=== PATIENT | female | born 1995 | race Caucasian/White ===

== ENCOUNTER 2017-10-16 04:36 | Inpatient (IN) | payer BC ==
[2017-10-16] MEDS ORDERED: NS 1,000 ML IV ONE ×4 (04:46→10:02)
[2017-10-16] MEDS ORDERED: INSULIN REGULAR HUMAN 100 UNIT/ML IVP ONE (04:46)
[2017-10-16] MEDS ORDERED: ONDANSETRON 4 MG/2 ML VIAL ONE (04:50)
--- NOTE | 2017-10-16 04:56 | EDPHY ---
H & P Stated Complaint: emesis and BS of 430 Time Seen by Provider: 10/16/17 04:46 HPI/ROS: HPI The patient presents with nausea and vomiting which began at 11:00 p.m. last night. She thinks she has had about 10 episodes of vomiting of yellowish fluid since then. She is currently being treated for a skin infection at the site of her insulin pump with Keflex for the last 4 days. She has not had any fevers or chills. Then, last night in between 2 and 10:00 p.m. she thinks she had about 8 drinks of wine and sangria. Before that she ate a large Thanksgiving meal. She reports diffuse abdominal pain. She has a history of DKA, last about 1 year ago requiring hospitalization here. She reports her insulin pump is working well. REVIEW OF SYSTEMS Constitutional: No fever, no chills. Eyes: No discharge. ENT: No sore throat. Cardiovascular: No chest pain, no palpitations. Respiratory: No cough, no shortness of breath. Gastrointestinal: No abdominal pain, no vomiting. Genitourinary: No hematuria. Musculoskeletal: No back pain. Skin: No rashes. Neurological: No headache. PMHx: Type 1 diabetes with insulin pump Soc Hx: Alcohol use PHYSICAL General Appearance: Alert, no distress Eyes: Pupils equal and round no pallor or injection ENT, Mouth: Mucous membranes dry Respiratory: Tachypnea, no retractions, lungs are clear to auscultation Cardiovascular: Tachycardic rate with regular rhythm Gastrointestinal: Abdomen is soft and non-tender, no masses, bowel sounds normal Neurological: A&O, moves all extremities Skin: Warm and dry, no rashes Musculoskeletal: Neck is supple non tender Extremities: symmetrical, full range of motion, left anterior thigh with 3 x 3 cm area of induration and dark edema which is nontender to palpation Psychiatric: Patient is oriented X 3, there is no agitation Source: Patient Exam Limitations: No limitations - Personal History Current Tetanus/Diphtheria Vaccine: Yes Current Tetanus Diphtheria and Acellular Pertussis (TDAP): Yes Tetanus Vaccine Date: < 10 YEARS - Medical/Surgical History Hx Asthma: No Hx Chronic Respiratory Disease: No Hx Diabetes: Yes Hx Cardiac Disease: No Hx Renal Disease: No Hx Cirrhosis: No Hx Alcoholism: No Hx HIV/AIDS: No Hx Splenectomy or Spleen Trauma: No Other PMH: DM TYPE 1 - Social History Smoking Status: Never smoked Constitutional: Initial Vital Signs Temperature (C) 36.4 C 10/16/17 04:37 Heart Rate 120 H 10/16/17 04:37 Respiratory Rate 18 10/16/17 04:37 Blood Pressure 116/90 H 10/16/17 04:37 O2 Sat (%) 100 10/16/17 04:37 O2 Delivery Mode Room Air Allergies/Adverse Reactions: No Known Allergies Allergy (Verified 10/16/17 04:43) Home Medications: Medication Instructions Recorded FLUoxetine [Prozac 20 MG (*)] 20 mg PO DAILY 09/24/16 Insulin Pump, Patient Own 1 ea MISC AD 09/24/16 Oxybutynin Chloride Xl [Ditropan 15 mg PO DAILY 09/24/16 Xl 5mg (*)] Insulin Aspart Prot/Insuln Asp 100 unit SQ DAILY #0 insuln.pen 09/27/16 [Novolog Mix 70-30 Flexpen Syrn] CEPHALEXIN 10/16/17 Medical Decision Making - Diagnostics EKG Interpretation: EKG: Complete interpretation has been separately recorded in the [email or web address] archive. Summary impression: Normal sinus rhythm Differential Diagnosis: This is a 22-year-old female with type 1 diabetes with insulin pump in place presents with nausea and vomiting for the last 6 hours. She has been drinking alcohol just prior to this and eating a large meal. Her blood glucoses when she checked them were in the 400s over the last few hours. Differential diagnosis includes DKA, hyperglycemia, dehydration, pancreatitis, alcoholic gastritis. In the emergency department, labs were checked and did demonstrate anion gap acidosis, likely related to DKA with elevated blood glucose. She had ketones in her urine as well. She was started on normal saline bolus, total of 3 L. She was started on an insulin bolus followed by a drip. She will be admitted to the ICU and I have discussed this with the hospitalist Dr. Kelley. I suspect DKA was caused by dietary indiscretion and alcohol use. Critical Care Time: CRITICAL CARE Critical care time spent by me, Dr. Castañeda, exclusively with this patient was 30 minutes, exclusive of PA time and exclusive of procedures. The organ system at risk was cardiac, endocrine and I gave IV fluids, started an insulin drip, transfer the patient to the ICU to prevent worsening of the patients condition. - Data Points Laboratory Results: Laboratory Results 10/16/17 05:05 10/16/17 05:05 10/16/17 10/16/17 10/16/17 05:05 05:05 05:00 WBC 15.62 10^3/uL H 10^3/uL (3.80-9.50) RBC 5.01 10^6/uL 10^6/uL (4.18-5.33) Hgb 15.5 g/dL g/dL (12.6-16.3) POC Hgb Hct 46.0 % % (38.0-47.0) POC Hct MCV 91.8 fL fL (81.5-99.8) MCH 30.9 pg pg (27.9-34.1) MCHC 33.7 g/dL g/dL (32.4-36.7) RDW 12.5 % % (11.5-15.2) Plt Count 374 10^3/uL 10^3/uL (150-400) MPV 10.3 fL fL (8.7-11.7) Neut % (Auto) 82.8 % H % (39.3-74.2) Lymph % (Auto) 14.1 % L % (15.0-45.0) [place] % (Auto) 2.2 % L % (4.5-13.0) Eos % (Auto) 0.1 % L % (0.6-7.6) Baso % (Auto) 0.2 % L % (0.3-1.7) Nucleat RBC Rel Count 0.0 % % (0.0-0.2) Absolute Neuts (auto) 12.93 10^3/uL H 10^3/uL (1.70-6.50) Absolute Lymphs (auto) 2.21 10^3/uL 10^3/uL (1.00-3.00) Absolute Monos (auto) 0.35 10^3/uL 10^3/uL (0.30-0.80) Absolute Eos (auto) 0.01 10^3/uL L 10^3/uL (0.03-0.40) Absolute Basos (auto) 0.03 10^3/uL 10^3/uL (0.02-0.10) Absolute Nucleated RBC 0.00 10^3/uL 10^3/uL (0-0.01) Immature Gran % 0.6 % % (0.0-1.1) Immature Gran # 0.09 10^3/uL 10^3/uL (0.00-0.10) POC Sodium Sodium 140 mEq/L mEq/L (134-144) POC Potassium Potassium 4.9 mEq/L mEq/L (3.5-5.2) POC Chloride Chloride 100 mEq/L mEq/L (97-110) Carbon Dioxide 9 mEq/l L* mEq/l (22-31) Anion Gap 31 mEq/L H mEq/L (8-16) POC BUN BUN 18 mg/dL mg/dL (7-23) Creatinine 0.9 mg/dL mg/dL (0.6-1.0) POC Creatinine Estimated GFR > 60 Glucose 503 mg/dL H* mg/dL (70-100) POC Glucose Calcium 10.7 mg/dL H mg/dL (8.5-10.4) Phosphorus 6.3 mg/dL H mg/dL (2.5-4.5) Magnesium 2.0 mg/dL mg/dL (1.6-2.3) Lipase 74 IU/L IU/L (23-300) Beta-Hydroxybutyrate Pending Urine Color PALE YELLOW Urine Appearance CLEAR Urine pH 5.0 (5.0-7.5) Ur Specific [place] 1.026 (1.002-1.030) Urine Protein NEGATIVE (NEGATIVE) Urine Ketones 2+ H (NEGATIVE) Urine Blood NEGATIVE (NEGATIVE) Urine Nitrate NEGATIVE (NEGATIVE) Urine Bilirubin NEGATIVE (NEGATIVE) Urine Urobilinogen NEGATIVE EU EU (0.2-1.0) Ur Leukocyte Esterase NEGATIVE (NEGATIVE) Urine RBC NONE SEEN /hpf /hpf (0-3) Urine WBC NONE SEEN /hpf /hpf (0-3) Ur Epithelial Cells TRACE /lpf /lpf (NONE-1+) Urine Mucus TRACE /lpf /lpf (NONE-1+) Urine Glucose 3+ H (NEGATIVE) Ethyl Alcohol < 10 mg/dL mg/dL (0-10) 10/16/17 10/16/17 04:58 04:51 WBC RBC Hgb POC Hgb 16.7 gm/dL H gm/dL (12.6-16.3) Hct POC Hct 49 % H % (38-47) MCV MCH MCHC RDW Plt Count MPV Neut % (Auto) Lymph % (Auto) [place] % (Auto) Eos % (Auto) Baso % (Auto) Nucleat RBC Rel Count Absolute Neuts (auto) Absolute Lymphs (auto) Absolute Monos (auto) Absolute Eos (auto) Absolute Basos (auto) Absolute Nucleated RBC Immature Gran % Immature Gran # POC Sodium 136 mEq/L mEq/L (134-144) Sodium POC Potassium 4.7 mEq/L mEq/L (3.3-5.0) Potassium POC Chloride 104 mEq/L mEq/L (97-110) Chloride Carbon Dioxide Anion Gap POC BUN 21 mg/dL mg/dL (7-23) BUN Creatinine POC Creatinine 0.8 mg/dL mg/dL (0.6-1.0) Estimated GFR Glucose POC Glucose 484 mg/dL H mg/dL > 350 mg/dL H mg/dL (70-100) (70-100) Calcium Phosphorus Magnesium Lipase Beta-Hydroxybutyrate Urine Color Urine Appearance Urine pH Ur Specific [place] Urine Protein Urine Ketones Urine Blood Urine Nitrate Urine Bilirubin Urine Urobilinogen Ur Leukocyte Esterase Urine RBC Urine WBC Ur Epithelial Cells Urine Mucus Urine Glucose Ethyl Alcohol Medications Given: Discontinued Medications Sodium Chloride (Ns) 1,000 mls @ 0 mls/hr IV ONCE ONE; Wide Open PRN Reason: Protocol Stop: 10/16/17 04:47 Last Admin: 10/16/17 05:03 Dose: 1,000 mls Insulin Human Regular (Humulin R) 10 unit IVP EDNOW ONE Stop: 10/16/17 04:47 Last Admin: 10/16/17 05:10 Dose: 10 units Ondansetron HCl (Zofran) 4 mg IVP EDNOW ONE Stop: 10/16/17 05:05 Last Admin: 10/16/17 05:04 Dose: 4 mg Point of Care Test Results: 10/16/17 10/16/17 04:51 04:58 POC Sodium 136 POC Potassium 4.7 POC Chloride 104 POC BUN 21 POC Creatinine 0.8 POC Glucose > 350 H 484 H Departure - Departure Disposition: [facility] Acute Clinical Impression: Nausea & vomiting DKA (diabetic ketoacidoses) Qualifiers: Diabetes mellitus type: type 1 Diabetes mellitus complication detail: without coma Qualified Code(s): E10.10 - Type 1 diabetes mellitus with ketoacidosis without coma Condition: Fair
[2017-10-16] MEDS ORDERED: ONDANSETRON 4 MG/2 ML VIAL IVP ONE (05:04)
[2017-10-16 05:12] LABS: COLOR PALE YELLOW; LEUKOCYTE ESTERASE,URINE NEGATIVE (NEGATIVE); NITRITE,URINE NEGATIVE (NEGATIVE)
[2017-10-16 05:16] LABS: MUCUS TRACE /lpf (NONE-1+); RBC,URINE NONE SEEN /hpf (0-3); WBC,URINE NONE SEEN /hpf (0-3)
[2017-10-16 05:19] LABS: % IMMATURE GRANULYOCYTES 0.6 % (0.0-1.1); ABSOLUTE IMMATURE GRANULOCYTES 0.09 10^3/uL (0.00-0.10); ADD DIFF? NO; ADD MORPH? NO; ADD SCAN? NO; ATYPICAL LYMPHOCYTE FLAG 0 (0-99); FRAGMENT RBC FLAG 0 (0-99); HEMOGLOBIN 15.5 g/dL (12.6-16.3); LEFT SHIFT FLG 0 (0-99); LIPEMIA HEMOLYSIS FLAG 80 (0-99); MEAN CELL HEMOGLOBIN 30.9 pg (27.9-34.1); MEAN CELL HEMOGLOBIN CONCENTR. 33.7 g/dL (32.4-36.7); MEAN CELL VOLUME 91.8 fL (81.5-99.8); MEAN PLATELET VOLUME 10.3 fL (8.7-11.7); PLATELET CLUMPS FLAG 0 (0-99); PLATELET COUNT 374 10^3/uL (150-400); RED BLOOD CELL COUNT 5.01 10^6/uL (4.18-5.33); RED CELL DISTRIBUTION WIDTH 12.5 % (11.5-15.2)
[2017-10-16 05:29] LABS: ANION GAP 31 mEq/L (8-16); CALCIUM 10.7 mg/dL (8.5-10.4); CHLORIDE 100 mEq/L (97-110); CREATININE 0.9 mg/dL (0.6-1.0); ETHANOL SERUM < 10 mg/dL (0-10); GLOMERULAR FILTRATION RATE > 60; POTASSIUM 4.9 mEq/L (3.5-5.2); SODIUM 140 mEq/L (134-144)
[2017-10-16 05:35] LABS: CARBON DIOXIDE 9 mEq/l (22-31)
[2017-10-16 05:36] LABS: GLUCOSE 503 mg/dL (70-100)
[2017-10-16] MEDS ORDERED: INSULIN REGULAR HUMAN 100 UNIT, COSIGN. REQUIRED 1 EA in NS 100 ML IV ONE (05:37)
[2017-10-16] MEDS ORDERED: ACETAMINOPHEN 325 MG TAB PO PRN (05:50)
[2017-10-16] MEDS ORDERED: ONDANSETRON DISINTEGRATING 4 MG TAB PO PRN (05:50)
[2017-10-16] MEDS ORDERED: ONDANSETRON 4 MG/2 ML VIAL IVP PRN (05:50)
--- NOTE | 2017-10-16 06:15 | CPEKG ---
Heart Rate: 121 RR Interval: 496 P-R Interval: 172 QRSD Interval: 84 QT Interval: 316 QTC Interval: 449 P [place]: 75 QRS [place]: 71 T Wave [place]: 0 EKG Severity - ABNORMAL ECG - EKG Impression: SINUS TACHYCARDIA EKG Impression: NONSPECIFIC T ABNORMALITIES, INFERIOR LEADS Electronically Signed By: Rio Gregorio 16-Oct-2017 07:10:33
[2017-10-16 06:22] LABS: B-HYDROXYBUTYRATE 7.25 mmol/L (0.02-0.27)
--- NOTE | 2017-10-16 06:36 | PDGENHP ---
History and Physical - Chief Complaint Nausea, vomiting - History of Present Illness 22 yo F w/ T1DM presents with nausea/vomiting. Patient is a type 1 diabetic with an insulin pump in place. Yesterday she had about 8 alcoholic beverages. Then, starting yesterday evening, she began to experience vomiting. She continued to vomit about every hour so she decided to come to the ED. Her insulin pump has been functioning without issue. Of note, She developed cellulitis on her left thigh from the site of her insulin pump last Tuesday. The site of her pump has since changed and she has been taking Keflex for 4 days. She has not noticed significant improvement to this despite the antibiotics. In the ED her laboratory work-up was consistent with DKA. Her symptoms improved significantly with 3L of IVF and insulin drip. History Information - Allergies/Home Medication List Allergies/Adverse Reactions: No Known Allergies Allergy (Verified 10/16/17 04:43) Home Medications: FLUoxetine [Prozac 20 MG (*)] 20 mg PO DAILY 09/24/16 [Last Taken 09/23/16] Insulin Pump, Patient Own 1 ea MISC AD 09/24/16 [Last Taken Unknown] Oxybutynin Chloride Xl [Ditropan Xl 5mg (*)] 15 mg PO DAILY 09/24/16 [Last Taken 09/23/16] CEPHALEXIN 10/16/17 [Last Taken Unknown] I have personally reviewed and updated: family history, medical history - Past Medical History diabetes type 1 - Family History Positive for: cancer - Social History Smoking Status: Never smoked Review of Systems Review of Systems: ROS: 10pt was reviewed & negative except for what was stated in HPI & below Physical Exam Physical Exam: Temp Pulse Resp BP Pulse Ox 36.4 C 124 H 20 99/78 L 96 10/16/17 04:37 10/16/17 05:30 10/16/17 05:30 10/16/17 05:30 10/16/17 05:30 Constitutional: no apparent distress, not in pain Eyes: PERRL, anicteric sclera Ears, Nose, Mouth, Throat: moist mucous membranes, no oral mucosal ulcers Cardiovascular: no murmur, rub, or gallop, tachycardia Respiratory: no respiratory distress, clear to auscultation Gastrointestinal: normoactive bowel sounds, soft, non-tender abdomen Skin: warm, erythema (Medial L thight with underlying induration; now spontaneously draining) Musculoskeletal: full muscle strength, no muscle tenderness Neurologic: AAOx3, CN II-XII Intact Psychiatric: interacting appropriately, not anxious Lab Data & Imaging Review 10/16/17 05:05 10/16/17 05:05 WBC 15.62 10^3/uL (3.80-9.50) H 10/16/17 05:05 RBC 5.01 10^6/uL (4.18-5.33) 10/16/17 05:05 Hgb 15.5 g/dL (12.6-16.3) 10/16/17 05:05 POC Hgb 16.7 gm/dL (12.6-16.3) H 10/16/17 04:58 Hct 46.0 % (38.0-47.0) 10/16/17 05:05 POC Hct 49 % (38-47) H 10/16/17 04:58 MCV 91.8 fL (81.5-99.8) 10/16/17 05:05 MCH 30.9 pg (27.9-34.1) 10/16/17 05:05 MCHC 33.7 g/dL (32.4-36.7) 10/16/17 05:05 RDW 12.5 % (11.5-15.2) 10/16/17 05:05 Plt Count 374 10^3/uL (150-400) 10/16/17 05:05 MPV 10.3 fL (8.7-11.7) 10/16/17 05:05 Neut % (Auto) 82.8 % (39.3-74.2) H 10/16/17 05:05 Lymph % (Auto) 14.1 % (15.0-45.0) L 10/16/17 05:05 [place] % (Auto) 2.2 % (4.5-13.0) L 10/16/17 05:05 Eos % (Auto) 0.1 % (0.6-7.6) L 10/16/17 05:05 Baso % (Auto) 0.2 % (0.3-1.7) L 10/16/17 05:05 Nucleat RBC Rel Count 0.0 % (0.0-0.2) 10/16/17 05:05 Absolute Neuts (auto) 12.93 10^3/uL (1.70-6.50) H 10/16/17 05:05 Absolute Lymphs (auto) 2.21 10^3/uL (1.00-3.00) 10/16/17 05:05 Absolute Monos (auto) 0.35 10^3/uL (0.30-0.80) 10/16/17 05:05 Absolute Eos (auto) 0.01 10^3/uL (0.03-0.40) L 10/16/17 05:05 Absolute Basos (auto) 0.03 10^3/uL (0.02-0.10) 10/16/17 05:05 Absolute Nucleated RBC 0.00 10^3/uL (0-0.01) 10/16/17 05:05 Immature Gran % 0.6 % (0.0-1.1) 10/16/17 05:05 Immature Gran # 0.09 10^3/uL (0.00-0.10) 10/16/17 05:05 POC Sodium 136 mEq/L (134-144) 10/16/17 04:58 Sodium 140 mEq/L (134-144) 10/16/17 05:05 POC Potassium 4.7 mEq/L (3.3-5.0) 10/16/17 04:58 Potassium 4.9 mEq/L (3.5-5.2) 10/16/17 05:05 POC Chloride 104 mEq/L (97-110) 10/16/17 04:58 Chloride 100 mEq/L (97-110) 10/16/17 05:05 Carbon Dioxide 9 mEq/l (22-31) L* 10/16/17 05:05 Anion Gap 31 mEq/L (8-16) H 10/16/17 05:05 POC BUN 21 mg/dL (7-23) 10/16/17 04:58 BUN 18 mg/dL (7-23) 10/16/17 05:05 Creatinine 0.9 mg/dL (0.6-1.0) 10/16/17 05:05 POC Creatinine 0.8 mg/dL (0.6-1.0) 10/16/17 04:58 Estimated GFR > 60 10/16/17 05:05 Glucose 503 mg/dL (70-100) H* 10/16/17 05:05 POC Glucose 484 mg/dL (70-100) H 10/16/17 04:58 Calcium 10.7 mg/dL (8.5-10.4) H 10/16/17 05:05 Phosphorus 6.3 mg/dL (2.5-4.5) H 10/16/17 05:05 Magnesium 2.0 mg/dL (1.6-2.3) 10/16/17 05:05 Lipase 74 IU/L (23-300) 10/16/17 05:05 Beta-Hydroxybutyrate 7.25 mmol/L (0.02-0.27) H 10/16/17 05:05 Urine Color PALE YELLOW 10/16/17 05:00 Urine Appearance CLEAR 10/16/17 05:00 Urine pH 5.0 (5.0-7.5) 10/16/17 05:00 Ur Specific [place] 1.026 (1.002-1.030) 10/16/17 05:00 Urine Protein NEGATIVE (NEGATIVE) 10/16/17 05:00 Urine Ketones 2+ (NEGATIVE) H 10/16/17 05:00 Urine Blood NEGATIVE (NEGATIVE) 10/16/17 05:00 Urine Nitrate NEGATIVE (NEGATIVE) 10/16/17 05:00 Urine Bilirubin NEGATIVE (NEGATIVE) 10/16/17 05:00 Urine Urobilinogen NEGATIVE EU (0.2-1.0) 10/16/17 05:00 Ur Leukocyte Esterase NEGATIVE (NEGATIVE) 10/16/17 05:00 Urine RBC NONE SEEN /hpf (0-3) 10/16/17 05:00 Urine WBC NONE SEEN /hpf (0-3) 10/16/17 05:00 Ur Epithelial Cells TRACE /lpf (NONE-1+) 10/16/17 05:00 Urine Mucus TRACE /lpf (NONE-1+) 10/16/17 05:00 Urine Glucose 3+ (NEGATIVE) H 10/16/17 05:00 Ethyl Alcohol < 10 mg/dL (0-10) 10/16/17 05:05 Visualized and Interpreted EKG results: Yes EKG Interpretation: Positive for: normal sinsus rhythm (Tachycardia) Assessment & Plan Assessment: 22 yo F w/ T1DM presents with DKA. Plan: 1. T1DM c/b DKA - AG 31, CO2 9, BG 500 on admission. Likely trigger ETOH binge on the day prior to presentation. Could be some contribution from L leg cellulitis but seems less likely as this has been ongoing for 4 days and appears relatively minor. - Admit to ICU for DKA protocol 2. LLE cellulitis - Located on medial left thigh with small associated abscess, which is now spontaneously draining. - Continue Keflex 500 mg q6h Diet - NPO until gap closes Ppx - Low risk Code - Full Dispo - Admit to ICU under observation status
[2017-10-16] MEDS ORDERED: CEPHALEXIN 500 MG CAP PO SCH (08:00)
[2017-10-16] MEDS ORDERED: INSULIN REGULAR HUMAN 100 UNIT/ML IVP PRN (08:19)
[2017-10-16] MEDS ORDERED: D50W 25 GM/50 ML SYR IVP PRN ×2 (08:19→13:23)
[2017-10-16] MEDS ORDERED: D10W 1,000 ML IV SCH (08:19)
[2017-10-16] MEDS ORDERED: INSULIN REGULAR HUMAN 100 UNIT in NS 100 ML IV SCH ×2 (08:19→21:00)
[2017-10-16 08:41] LABS: ANION GAP 20 mEq/L (8-16); CALCIUM 9.1 mg/dL (8.5-10.4); CARBON DIOXIDE 13 mEq/l (22-31); CHLORIDE 110 mEq/L (97-110); CHOLESTEROL 171 mg/dL (140-200); CHOLESTEROL/HDL RATIO 1.92 RATIO (1.00-4.44); CREATININE 0.7 mg/dL (0.6-1.0); GLOMERULAR FILTRATION RATE > 60; GLUCOSE 168 mg/dL (70-100); HIGH DENSITY LIPOPROTEIN 89 mg/dL (40-75); LDL/HDL RATIO 0.57 RATIO (1.00-3.22); LOW DENSITY LIPOPROTEIN 51 mg/dL (60-100); NON-HIGH DENSITY LIPOPROTEIN 82 mg/dL (90-129); POTASSIUM 4.4 mEq/L (3.5-5.2); SODIUM 143 mEq/L (134-144); TRIGLYCERIDE 157 mg/dL (35-135); VERY LOW DENSITY LIPOPROTEINS 31 mg/dL (8-25)
[2017-10-16] MEDS: CEPHALEXIN 500 MG CAP PO SCH ×3 (08:58→21:28)
[2017-10-16] MEDS ORDERED: D5W 1,000 ML IV SCH (10:00)
--- NOTE | 2017-10-16 10:15 | HOSPPROG ---
Hospitalist Progress Note Assessment/Plan: DKA in setting of type 1 DM - Likely precipitated by etoh binge followed by N/ V. Symptoms improved. Gap improved. BG 180. -Repeat NS bolus -Maintenance fluids D5 1/2 NS 20 KCl at 175/hr -q4h bmp and adjust fluids as indicated -likely transition back to pump this afternoon once gap closed -a1c pending to assess overall control LLE abscess - ~2 cm of induration, no fluctuance. Improved per pt. -cont keflex Leukocytosis - suspect stress response, doubt small abscess is contributing -follow N/V - likely secondary to heavy etoh intake. -IV PPI Full code Dispo - cont ICU while on insulin drip Subjective: Pt feels better. Asks to go home. No more N/V this am, last vomited at 4 am. No fevers/chills. No CP, SOB, or abdominal pain. Has an insulin pump. Objective: Vital Signs Temp Pulse Resp BP Pulse Ox 36.6 C 113 H 17 98/59 L 98 10/16/17 08:43 10/16/17 09:37 10/16/17 09:37 10/16/17 08:43 10/16/17 09:37 Laboratory Results 10/16/17 08:20 10/15/17 10/16/17 10/17/17 05:59 05:59 05:59 Intake Total 3500 Balance 3500 - Physical Exam Constitutional: no apparent distress Eyes: PERRL Ears, Nose, Mouth, Throat: moist mucous membranes Cardiovascular: tachycardia Respiratory: no respiratory distress, clear to auscultation Gastrointestinal: normoactive bowel sounds, soft, non-tender abdomen Skin: warm, other (LLE with 2 cm indurated area with erythema, s/p drainage, no purulence or fluctuance now) Musculoskeletal: full muscle strength Neurologic: AAOx3 Psychiatric: interacting appropriately ICD10 Worksheet Patient Problems: Problems Problem Status Onset DKA (diabetic ketoacidoses) Acute Nausea & vomiting Acute
[2017-10-16] MEDS: D5W 1/2 NS W/ 20 KCl/L 1,000 ML IV SCH ×2 (10:16→15:00)
--- NOTE | 2017-10-16 11:42 | ASMTCMCOM ---
CM Note CM Note Notes: 22 year old female admitted for N/V, DKA, ETOH abuse, L LE cellulitis. Patient uses an insulin pump, the site has cellulitis which was being tx with ABX before she was admitted. Patient would like to be discharged to return home today. No discharge needs anticipated. Date Signed: 10/16/2017 11:41 AM Electronically Signed By:Mikki Peña LCSW
--- NOTE | 2017-10-16 11:44 | PDMN ---
Medical Necessity Medical necessity: C/M review: Patient meets INPT criteria under m-130 Diabetes (Diabetic ketoacidosis); Acute diabetic ketoacidosis, initial labs - glucose 503, beta-hydroxybutyrate 7.25, CO2 9, anion gap 31, urine ketones 2+, 10/16/17 08:20 AM labs glucose 168, CO2 13, anion gap 20, 10/16/17 10:13 AM glucose 180, nausea, vomiting, requiring ongoing IV Human Regular Insulin infusion, IV D5W 1/2 NS 175 ml/hr., basic metabolic panel Q 4 hrs., continue oral Keflex in ICU, comorbid left lower extremity abscess present on admit, hx type 1 diabetes on chronic insulin pump; heavy alcohol intake prior to this admission. MD anticipates > 2 MN LOS for ongoing med nec for eval and TX of above.
[2017-10-16] MEDS: PANTOPRAZOLE SODIUM 40 MG VIAL IVP SCH (12:10)
[2017-10-16 12:24] LABS: ANION GAP 9 mEq/L (8-16); CALCIUM 8.5 mg/dL (8.5-10.4); CARBON DIOXIDE 17 mEq/l (22-31); CHLORIDE 111 mEq/L (97-110); CREATININE 0.6 mg/dL (0.6-1.0); GLOMERULAR FILTRATION RATE > 60; GLUCOSE 117 mg/dL (70-100); POTASSIUM 4.1 mEq/L (3.5-5.2); SODIUM 137 mEq/L (134-144)
[2017-10-16] MEDS ORDERED: NON-FORMULARY NEW DRUG (Insulin Pump, Patient Own 1 EA) MISC SCH (13:30)
[2017-10-16 16:18] LABS: ANION GAP 12 mEq/L (8-16); CALCIUM 8.5 mg/dL (8.5-10.4); CARBON DIOXIDE 14 mEq/l (22-31); CHLORIDE 107 mEq/L (97-110); CREATININE 0.7 mg/dL (0.6-1.0); GLOMERULAR FILTRATION RATE > 60; GLUCOSE 271 mg/dL (70-100); POTASSIUM 4.8 mEq/L (3.5-5.2); SODIUM 133 mEq/L (134-144)
[2017-10-16] MEDS: NS 1,000 ML IV SCH ×2 (17:00→21:29)
[2017-10-16] MEDS: FLUoxetine 20 MG CAP PO SCH (17:10)
[2017-10-16 20:22] LABS: ANION GAP 20 mEq/L (8-16); CALCIUM 8.9 mg/dL (8.5-10.4); CHLORIDE 106 mEq/L (97-110); CREATININE 0.7 mg/dL (0.6-1.0); GLOMERULAR FILTRATION RATE > 60; GLUCOSE 343 mg/dL (70-100); POTASSIUM 4.9 mEq/L (3.5-5.2); SODIUM 134 mEq/L (134-144)
[2017-10-16 20:31] LABS: CARBON DIOXIDE 8 mEq/l (22-31)
[2017-10-16 22:26] LABS: ANION GAP 20 mEq/L (8-16); CALCIUM 8.4 mg/dL (8.5-10.4); CHLORIDE 106 mEq/L (97-110); CREATININE 0.8 mg/dL (0.6-1.0); GLOMERULAR FILTRATION RATE > 60; GLUCOSE 384 mg/dL (70-100); POTASSIUM 4.6 mEq/L (3.5-5.2); SODIUM 132 mEq/L (134-144)
[2017-10-16 22:35] LABS: CARBON DIOXIDE 6 mEq/l (22-31)
[2017-10-17 00:50] LABS: ANION GAP 13 mEq/L (8-16); CALCIUM 8.5 mg/dL (8.5-10.4); CARBON DIOXIDE 13 mEq/l (22-31); CHLORIDE 110 mEq/L (97-110); CREATININE 0.7 mg/dL (0.6-1.0); GLOMERULAR FILTRATION RATE > 60; GLUCOSE 192 mg/dL (70-100); SODIUM 136 mEq/L (134-144)
[2017-10-17 02:36] LABS: HEMOGLOBIN A1C 12.3 % (4.0-6.0)
[2017-10-17] MEDS: CEPHALEXIN 500 MG CAP PO SCH ×3 (03:42→14:45)
[2017-10-17 04:28] LABS: % IMMATURE GRANULYOCYTES 0.3 % (0.0-1.1); ABSOLUTE IMMATURE GRANULOCYTES 0.04 10^3/uL (0.00-0.10); ADD DIFF? NO; ADD MORPH? NO; ADD SCAN? NO; ATYPICAL LYMPHOCYTE FLAG 0 (0-99); FRAGMENT RBC FLAG 0 (0-99); HEMATOCRIT 37.5 % (38.0-47.0); HEMOGLOBIN 12.9 g/dL (12.6-16.3); LEFT SHIFT FLG 0 (0-99); LIPEMIA HEMOLYSIS FLAG 90 (0-99); MEAN CELL HEMOGLOBIN 30.9 pg (27.9-34.1); MEAN CELL HEMOGLOBIN CONCENTR. 34.4 g/dL (32.4-36.7); MEAN CELL VOLUME 89.9 fL (81.5-99.8); MEAN PLATELET VOLUME 9.6 fL (8.7-11.7); PLATELET CLUMPS FLAG 0 (0-99); PLATELET COUNT 347 10^3/uL (150-400); RED BLOOD CELL COUNT 4.17 10^6/uL (4.18-5.33); RED CELL DISTRIBUTION WIDTH 12.8 % (11.5-15.2)
[2017-10-17 04:39] LABS: ANION GAP 10 mEq/L (8-16); CALCIUM 8.8 mg/dL (8.5-10.4); CARBON DIOXIDE 19 mEq/l (22-31); CHLORIDE 112 mEq/L (97-110); CREATININE 0.7 mg/dL (0.6-1.0); GLOMERULAR FILTRATION RATE > 60; GLUCOSE 47 mg/dL (70-100); POTASSIUM 3.5 mEq/L (3.5-5.2); SODIUM 141 mEq/L (134-144)
[2017-10-17] MEDS ORDERED: INSULIN GLARGINE 100 UNITS/ML SYRINGE SC ONE (05:49)
--- NOTE | 2017-10-17 05:51 | HOSPPROG ---
Hospitalist Progress Note Assessment/Plan: Cross-cover: Patient on insulin drip overnight. AG closed on 2 consecutive BMP' s. Will turn patient's home pump back on and give additional 10 units of glargine up front to hopefully keep gap from reopening. Objective: Vital Signs Temp Pulse Resp BP Pulse Ox 36.8 C 109 H 14 104/58 L 97 10/16/17 16:00 10/17/17 04:00 10/17/17 04:00 10/17/17 04:00 10/17/17 04:00 Laboratory Results 10/17/17 04:15 10/17/17 04:15 10/15/17 10/16/17 10/17/17 05:59 05:59 05:59 Intake Total 1821 Output Total 950 Balance 871 ICD10 Worksheet Patient Problems: Problems Problem Status Onset DKA (diabetic ketoacidoses) Acute Nausea & vomiting Acute
[2017-10-17 08:32] LABS: ANION GAP 12 mEq/L (8-16); CALCIUM 8.5 mg/dL (8.5-10.4); CARBON DIOXIDE 14 mEq/l (22-31); CHLORIDE 108 mEq/L (97-110); CREATININE 0.7 mg/dL (0.6-1.0); GLOMERULAR FILTRATION RATE > 60; GLUCOSE 234 mg/dL (70-100); POTASSIUM 5.4 mEq/L (3.5-5.2); SODIUM 134 mEq/L (134-144)
[2017-10-17] MEDS: FLUoxetine 20 MG CAP PO SCH (08:36)
[2017-10-17] MEDS: PANTOPRAZOLE SODIUM 40 MG VIAL IVP SCH (08:37)
--- NOTE | 2017-10-17 08:51 | HOSPPROG ---
Hospitalist Progress Note Assessment/Plan: DKA - Likely precipitated by etoh binge followed by N/V. Poorly controlled with a1c 12.3. Gap closed yesterday and she was transitioned back to her pump, but gap opened again with rising bg >300 on home pump settings. Insulin drip resumed last night. Overnight, gap closed and drip was stopped, she was given 10 u Lantus, now with worsening acidemia, and widening gap even with increased basal settings on her pump. She refused insulin drip today, but agrees to resume drip after 1600 BMP again shows widening gap. Discussed with Dr. Snyder, hoop maker ([phone]) -Increased basal rate on pump (was on 1.4 u/hr from MN to 12:30 pm and 1.0 u/ hr from 12:30 pm to MN, increased to 2.1 u/hr and 1.5u/hr respectively) per recommendations by Endo. This was not effective. -Back on drip again, pt refused drip all day, but agrees now. Need to assess insulin needs and increase pump settings again once gap closed. -q1h bg's, adjust drip per DKA protocol -NS bolus, cont IVF's -cont q4h bmp -change to IV atbx for possible infection driving this, check BCx's, HCG -close f/u with endocrine at d/c. pt to call to reschedule appt (was this am ) LLE abscess - ~2 cm of induration, no fluctuance. UA neg. No fevers. Improved on oral keflex. -change to IV Ancef given persistent DKA -send BCx's Leukocytosis - Unclear if small LLE abscess is driving this and DKA -follow N/V - likely secondary to heavy etoh intake. -IV PPI Full code Dispo - cont ICU while on insulin drip Subjective: PT feels better. BG's on the rise despite increased basal pump settings. No fevers or chills. No cough, CP or SOB. No abdominal or urinary symptoms. Objective: Vital Signs Temp Pulse Resp BP Pulse Ox 36.8 C 109 H 14 104/58 L 97 10/16/17 16:00 10/17/17 04:00 10/17/17 04:00 10/17/17 04:00 10/17/17 04:00 Laboratory Results 10/17/17 04:15 10/17/17 08:15 10/16/17 10/17/17 10/18/17 05:59 05:59 05:59 Intake Total 2549 Output Total 950 Balance 1599 - Physical Exam Constitutional: no apparent distress Eyes: PERRL Ears, Nose, Mouth, Throat: moist mucous membranes Cardiovascular: regular rate and rhythym, no murmur, rub, or gallop Respiratory: no respiratory distress, clear to auscultation Gastrointestinal: normoactive bowel sounds, soft, non-tender abdomen Skin: warm, other (LLE 2 cm area of erythema and induration, no fluctuance or drainage) Musculoskeletal: full muscle strength Neurologic: AAOx3 Psychiatric: interacting appropriately ICD10 Worksheet Patient Problems: Problems Problem Status Onset DKA (diabetic ketoacidoses) Acute Nausea & vomiting Acute
[2017-10-17 12:40] LABS: ANION GAP 17 mEq/L (8-16); CALCIUM 8.7 mg/dL (8.5-10.4); CARBON DIOXIDE 14 mEq/l (22-31); CHLORIDE 105 mEq/L (97-110); CREATININE 0.7 mg/dL (0.6-1.0); GLOMERULAR FILTRATION RATE > 60; GLUCOSE 354 mg/dL (70-100); POTASSIUM 4.9 mEq/L (3.5-5.2); SODIUM 136 mEq/L (134-144)
[2017-10-17] MEDS ORDERED: INSULIN REGULAR HUMAN 100 UNIT in NS 100 ML IV SCH ×2 (13:30→17:50)
[2017-10-17 17:23] LABS: ANION GAP 19 mEq/L (8-16); CARBON DIOXIDE 11 mEq/l (22-31); CHLORIDE 104 mEq/L (97-110); CREATININE 0.7 mg/dL (0.6-1.0); GLOMERULAR FILTRATION RATE > 60; GLUCOSE 350 mg/dL (70-100); POTASSIUM 4.8 mEq/L (3.5-5.2); SODIUM 134 mEq/L (134-144)
[2017-10-17] MEDS ORDERED: NS 1,000 ML IV ONE (17:48)
[2017-10-17] MEDS: NS 1,000 ML IV SCH (20:20)
[2017-10-17] MEDS: D5W 1,000 ML IV SCH (20:30)
[2017-10-17 20:34] LABS: ANION GAP 12 mEq/L (8-16); CARBON DIOXIDE 14 mEq/l (22-31); CHLORIDE 108 mEq/L (97-110); CREATININE 0.6 mg/dL (0.6-1.0); GLOMERULAR FILTRATION RATE > 60; GLUCOSE 195 mg/dL (70-100); POTASSIUM 3.6 mEq/L (3.5-5.2); SODIUM 134 mEq/L (134-144)
[2017-10-17] MEDS ORDERED: PROTOCOL POTASSIUM 1 DOSE MISC PRN ×2 (22:19)
[2017-10-17] MEDS ORDERED: POTASSIUM CL 20 MEQ TAB PO ONE (23:46)
[2017-10-18 00:21] LABS: ANION GAP 10 mEq/L (8-16); CALCIUM 8.1 mg/dL (8.5-10.4); CARBON DIOXIDE 17 mEq/l (22-31); CHLORIDE 111 mEq/L (97-110); CREATININE 0.6 mg/dL (0.6-1.0); GLOMERULAR FILTRATION RATE > 60; GLUCOSE 120 mg/dL (70-100); POTASSIUM 3.4 mEq/L (3.5-5.2); SODIUM 138 mEq/L (134-144)
[2017-10-18] MEDS: D5W 1,000 ML IV SCH (03:15)
[2017-10-18 04:27] LABS: % IMMATURE GRANULYOCYTES 0.2 % (0.0-1.1); ABSOLUTE IMMATURE GRANULOCYTES 0.01 10^3/uL (0.00-0.10); ADD DIFF? NO; ADD MORPH? NO; ADD SCAN? NO; ATYPICAL LYMPHOCYTE FLAG 0 (0-99); FRAGMENT RBC FLAG 0 (0-99); HEMATOCRIT 33.8 % (38.0-47.0); HEMOGLOBIN 11.9 g/dL (12.6-16.3); LEFT SHIFT FLG 0 (0-99); LIPEMIA HEMOLYSIS FLAG 90 (0-99); MEAN CELL HEMOGLOBIN 31.6 pg (27.9-34.1); MEAN CELL HEMOGLOBIN CONCENTR. 35.2 g/dL (32.4-36.7); MEAN CELL VOLUME 89.7 fL (81.5-99.8); MEAN PLATELET VOLUME 9.9 fL (8.7-11.7); PLATELET CLUMPS FLAG 10 (0-99); PLATELET COUNT 228 10^3/uL (150-400); RED BLOOD CELL COUNT 3.77 10^6/uL (4.18-5.33); RED CELL DISTRIBUTION WIDTH 12.6 % (11.5-15.2)
[2017-10-18 04:46] LABS: ANION GAP 12 mEq/L (8-16); CALCIUM 8.6 mg/dL (8.5-10.4); CARBON DIOXIDE 19 mEq/l (22-31); CHLORIDE 109 mEq/L (97-110); CREATININE 0.6 mg/dL (0.6-1.0); GLOMERULAR FILTRATION RATE > 60; GLUCOSE 149 mg/dL (70-100); POTASSIUM 3.9 mEq/L (3.5-5.2); SODIUM 140 mEq/L (134-144)
[2017-10-18] MEDS: PANTOPRAZOLE SODIUM 40 MG VIAL IVP SCH (08:26)
[2017-10-18] MEDS: FLUoxetine 20 MG CAP PO SCH (08:26)
--- NOTE | 2017-10-18 08:31 | HOSPPROG ---
Hospitalist Progress Note Assessment/Plan: #Diabetic ketoacidosis -in setting of Etoh, N/V. Afebrile. No e/o infection, afebrile -adjusted insulin pump per Endo recommendations, but gap opened and gtt restarted -spoke with endo today. Needs to bolus 1 unit for every 8 gram of carbs (1 unit will drop glucose approx 30) -basal rate 2units/hr during day, 1.5 units/hr night -cont serial BMP #Leukocytosis: resolved. Small LLE abscess. Blood cultures negative. Keflex #Hypokalemia: repleting on protocol #LLE abscess: Keflex #Diet: diabetic diet #Disp: cont ICU admission with brittle glucose levels, IV insulin, serial labs # Subjective: no N/V today. Eating breakfast Objective: Vital Signs Temp Pulse Resp BP Pulse Ox 36.9 C 85 24 H 90/69 L 99 10/18/17 01:00 10/18/17 04:00 10/18/17 04:00 10/18/17 04:00 10/17/17 20:00 Laboratory Results 10/18/17 04:05 10/18/17 04:05 10/17/17 10/18/17 10/19/17 05:59 05:59 05:59 Intake Total 2549 7182.4 250 Output Total 950 903 Balance 1599 6279.4 250 - Physical Exam Constitutional: no apparent distress Eyes: PERRL Ears, Nose, Mouth, Throat: moist mucous membranes Cardiovascular: regular rate and rhythym Respiratory: no respiratory distress Gastrointestinal: normoactive bowel sounds Genitourinary: no bladder fullness Skin: warm, other (small area induration left thigh, no fluctuance or TTP) Musculoskeletal: full muscle strength Neurologic: AAOx3, CN II-XII Intact Psychiatric: interacting appropriately Lymph, Heme, Immunologic: no cervical LAD ICD10 Worksheet Patient Problems: Problems Problem Status Onset DKA (diabetic ketoacidoses) Acute Nausea & vomiting Acute
[2017-10-18 08:51] LABS: ANION GAP 11 mEq/L (8-16); CALCIUM 8.4 mg/dL (8.5-10.4); CARBON DIOXIDE 18 mEq/l (22-31); CHLORIDE 110 mEq/L (97-110); CREATININE 0.5 mg/dL (0.6-1.0); GLOMERULAR FILTRATION RATE > 60; GLUCOSE 171 mg/dL (70-100); POTASSIUM 3.9 mEq/L (3.5-5.2); SODIUM 139 mEq/L (134-144)
[2017-10-18] MEDS ORDERED: POTASSIUM CL 10 MEQ TAB PO ONE ×2 (09:08→22:28)
[2017-10-18] MEDS: CEPHALEXIN 500 MG CAP PO SCH ×2 (12:32→18:48)
[2017-10-18 12:50] LABS: ANION GAP 13 mEq/L (8-16); CALCIUM 8.9 mg/dL (8.5-10.4); CARBON DIOXIDE 17 mEq/l (22-31); CHLORIDE 109 mEq/L (97-110); CREATININE 0.6 mg/dL (0.6-1.0); GLOMERULAR FILTRATION RATE > 60; GLUCOSE 232 mg/dL (70-100); POTASSIUM 4.4 mEq/L (3.5-5.2); SODIUM 139 mEq/L (134-144)
[2017-10-18] MEDS ORDERED: D50W 25 GM/50 ML SYR IVP PRN (14:05)
[2017-10-18 18:17] LABS: ANION GAP 17 mEq/L (8-16); CALCIUM 8.6 mg/dL (8.5-10.4); CARBON DIOXIDE 10 mEq/l (22-31); CHLORIDE 109 mEq/L (97-110); CREATININE 0.6 mg/dL (0.6-1.0); GLOMERULAR FILTRATION RATE > 60; GLUCOSE 270 mg/dL (70-100); SODIUM 136 mEq/L (134-144)
[2017-10-18] MEDS: INSULIN LISPRO 100 UNIT/ML SC SCH (19:20)
[2017-10-18 21:53] LABS: ANION GAP 13 mEq/L (8-16); CALCIUM 9.5 mg/dL (8.5-10.4); CARBON DIOXIDE 22 mEq/l (22-31); CHLORIDE 106 mEq/L (97-110); CREATININE 0.6 mg/dL (0.6-1.0); GLOMERULAR FILTRATION RATE > 60; GLUCOSE 85 mg/dL (70-100); POTASSIUM 3.3 mEq/L (3.5-5.2); SODIUM 141 mEq/L (134-144)
[2017-10-18 23:26] VITALS: RESP 16
[2017-10-19] MEDS: CEPHALEXIN 500 MG CAP PO SCH ×2 (00:34→06:13)
[2017-10-19 00:57] LABS: ANION GAP 9 mEq/L (8-16); CALCIUM 8.7 mg/dL (8.5-10.4); CARBON DIOXIDE 24 mEq/l (22-31); CHLORIDE 109 mEq/L (97-110); CREATININE 0.5 mg/dL (0.6-1.0); GLOMERULAR FILTRATION RATE > 60; GLUCOSE 81 mg/dL (70-100); POTASSIUM 3.3 mEq/L (3.5-5.2); SODIUM 142 mEq/L (134-144)
[2017-10-19 05:09] LABS: ANION GAP 9 mEq/L (8-16); CALCIUM 8.7 mg/dL (8.5-10.4); CARBON DIOXIDE 25 mEq/l (22-31); CHLORIDE 109 mEq/L (97-110); CREATININE 0.5 mg/dL (0.6-1.0); GLOMERULAR FILTRATION RATE > 60; GLUCOSE 81 mg/dL (70-100); POTASSIUM 3.7 mEq/L (3.5-5.2); SODIUM 143 mEq/L (134-144)
[2017-10-19 06:16] VITALS: O2SAT 100
[2017-10-19] MEDS ORDERED: POTASSIUM CL 10 MEQ TAB PO ONE (07:19)
[2017-10-19 08:00] VITALS: BP 96/59; PULSE 94; TEMP 98.3
[2017-10-19] MEDS: INSULIN LISPRO 100 UNIT/ML SC SCH (08:10)
[2017-10-19] MEDS: FLUoxetine 20 MG CAP PO SCH (08:16)
[2017-10-19] MEDS ORDERED: PANTOPRAZOLE SODIUM 40 MG TAB PO SCH (09:00)
--- NOTE | 2017-10-19 22:32 | GDS ---
[f rep st] DISCHARGE SUMMARY DISCHARGE DIAGNOSES: 1. Diabetic ketoacidosis. 2. Uncontrolled type 1 diabetes. 3. Small left thigh cellulitis. 4. Nausea, vomiting. 5. Hypokalemia. 6. Leukocytosis. HISTORY OF PRESENT ILLNESS: A 22-year-old female with history of type 1 diabetes presented with nausea, vomiting after drinking 8 alcoholic beverages. She continued to vomit on the hour, so decided to come to the emergency room, given dehydration. She says her insulin pump had been functioning without issue. She developed a cellulitis of her left thigh at the site of her insulin pump last week. She has been taking Keflex for 4 days. HOSPITAL COURSE BY PROBLEM: 1. DKA: In the setting of nausea, vomiting after alcohol. Poorly-controlled, A1c 12.3%. Difficult controlling sugars in the ICU as initially thought due to pump malfunction. This was troubleshoot through the company and the Endocrinology nurse and clinic. At discharge, continue 2 units basal during the day, 1 units at night. She is to bolus herself as previously instructed. Follow up with [employer] the next couple days. A1c was 12.3% and will need close followup for better control. 2. Left thigh cellulitis: This is minimal. We will continue Keflex. 3. Leukocytosis: Suspect this is stress inflammation given acute DKA. She remained afebrile and negative blood cultures. 4. Hypokalemia: Repleted. DISPOSITION: Patient safe for discharge. MEDICATIONS: Insulin pump 2 units during the day, 1 at night and boluses per patient. FOLLOW UP: 1. Endocrinology. 2. Her PCP. PHYSICAL EXAMINATION: VITAL SIGNS: Today, temperature 36.8, blood pressure 96/ 59, heart rate in the 80s, respirations 16, 100% on room air. GENERAL: Well-appearing, much brighter today. HEENT: PERRLA. EOMI. Moist mucosa. CARDIOVASCULAR: Regular rate and rhythm. No murmurs, gallops, rubs. LUNGS: Clear to auscultation bilaterally. ABDOMEN: Soft, nontender, nondistended. Positive bowel sounds. GENITOURINARY: No [place]. MUSCULOSKELETAL: 5/5 upper and lower extremity strength. SKIN: Warm, dry. Small area of erythema on left thigh that is improved with antibiotics. Notes induration or pus. NEUROLOGIC: 2 through 12 intact. PSYCHIATRIC: Alert, oriented x3. Time spent on discharge: 45 min counseling on insulin dosage, coordinating DC and follow with Endo /[id number]/MODL JAMILA
== END 2017-10-19 09:35 | disposition home or self-care (01) | DRG 638 ==
LOC: F2N 08:00 → INTOOBSV 11:21 → OBSVTOIN 11:21
PROVIDERS: ADMIT Student in an Organized Health Care Education/Training Program; ATTEND Student in an Organized Health Care Education/Training Program
DX: E10.10 Type 1 diabetes mellitus with ketoacidosis without coma (principal); L03.116 Cellulitis of left lower limb; E87.6 Hypokalemia; Z96.41 Presence of insulin pump (external) (internal); Z79.4 Long term (current) use of insulin
CPT/HCPCS: 82947-QW; 96374; G0480; J0690; J1815; J2405

== ENCOUNTER 2018-09-18 01:02 | Inpatient (IN) | payer BC ==
[2018-09-18] MEDS ORDERED: NS 1,000 ML IV ONE ×2 (01:14→02:33)
[2018-09-18] MEDS ORDERED: ONDANSETRON 4 MG/2 ML VIAL ONE (01:29)
[2018-09-18] MEDS ORDERED: ONDANSETRON 4 MG/2 ML VIAL IVP ONE (01:29)
[2018-09-18 01:35] LABS: PLATELET COUNT 315 10^3/uL (150-400)
[2018-09-18] MEDS ORDERED: D10W 1,000 ML IV ONE (01:36)
[2018-09-18] MEDS ORDERED: D50W 25 GM/50 ML SYR IVP PRN ×4 (01:36→18:08)
[2018-09-18] MEDS ORDERED: INSULIN REGULAR HUMAN 100 UNIT, COSIGN. REQUIRED 1 EA in NS 100 ML IV ONE (01:36)
--- NOTE | 2018-09-18 01:37 | EDPHY ---
H & P Stated Complaint: HIGH BLOOD SUGAR, 563 Time Seen by Provider: 09/18/18 01:13 HPI/ROS: HPI The patient presents with nausea and vomiting with elevated blood sugars in the 500s tonight. The patient began to feel badly at approximately 9:00 p.m. Tonight. She checked her blood glucose and it was in the 500s. She then bolused her insulin pump, however repeat glucose levels continued to be elevated.. REVIEW OF SYSTEMS 10 systems were reviewed and negative with the exception of the elements mentioned in the history of present illness. PMHx: Type 1 diabetes, insulin pump in place, history of DKA, unsure of her last hemoglobin A1c Soc Hx: Here with a friend, occasional alcohol use PHYSICAL General Appearance: Alert, no distress Eyes: Pupils equal and round no pallor or injection ENT, Mouth: Mucous membranes dry Respiratory: There are no retractions, slightly tachypneic, lungs are clear to auscultation Cardiovascular: Tachycardic rate rate and rhythm Gastrointestinal: Abdomen is soft and non-tender, no masses, bowel sounds normal Neurological: A&O, moves all extremities Skin: Warm and dry, no rashes Musculoskeletal: Neck is supple non tender Extremities: symmetrical, full range of motion Psychiatric: Patient is oriented X 3, there is no agitation Source: Patient Exam Limitations: No limitations - Personal History LMP (Females 10-55): Extended Cycle BCP/Inj Current Tetanus/Diphtheria Vaccine: Yes Current Tetanus Diphtheria and Acellular Pertussis (TDAP): Yes Tetanus Vaccine Date: < 10 YEARS - Medical/Surgical History Hx Asthma: No Hx Chronic Respiratory Disease: No Hx Diabetes: Yes Hx Cardiac Disease: No Hx Renal Disease: No Hx Cirrhosis: No Hx Alcoholism: No Hx HIV/AIDS: No Hx Splenectomy or Spleen Trauma: No Other PMH: DM TYPE 1 - Social History Smoking Status: Never smoked Constitutional: Initial Vital Signs Temperature (C) 36.5 C 09/18/18 01:08 Heart Rate 142 H 09/18/18 01:08 Respiratory Rate 18 09/18/18 01:08 Blood Pressure 137/84 H 09/18/18 01:08 O2 Sat (%) 99 09/18/18 01:08 O2 Delivery Mode Room Air Allergies/Adverse Reactions: No Known Allergies Allergy (Verified 09/18/18 01:10) Home Medications: Medication Instructions Recorded FLUoxetine [Prozac 20 MG (*)] 20 mg PO DAILY 09/24/16 Insulin Pump, Patient Own 1 ea MISC AD 09/24/16 Oxybutynin Chloride [Ditropan Xl] 30 mg PO DAILY 10/16/17 Medical Decision Making - Diagnostics EKG Interpretation: EKG: Complete interpretation has been separately recorded in the [facility] archive. Summary impression: Sinus tachycardia Differential Diagnosis: 23-year-old female with type 1 diabetes who uses insulin pump presents with several hours of malaise, nausea, vomiting in the setting of elevated blood glucose levels. This is concerning for DKA which she has been in several times before. It seems that her pump may be male functioning or her blood glucose levels are just poorly controlled. She has not checked her levels in several days. She has not had any recent infections. I have not identified a cause to put her into DKA at this time. She is started on insulin drip here in the emergency department. I consulted with Dr. Humphries of the hospitalist service and we will admit the patient. Critical Care Time: CRITICAL CARE Critical care time spent by me, Dr. Castañeda, exclusively with this patient was 30 minutes, exclusive of PA time and exclusive of procedures. The organ system at risk was neuro, cardiac and I gave IV fluids, started insulin drip, transferred patient to the ICU to prevent worsening of the patients condition. - Data Points Laboratory Results: Laboratory Results 09/18/18 01:25 09/18/18 01:25 09/18/18 09/18/18 09/18/18 01:32 01:25 01:25 WBC RBC Hgb POC Hgb 16.3 gm/dL gm/dL (12.6-16.3) Hct POC Hct 48 % H % (38-47) MCV MCH MCHC RDW Plt Count MPV Neut % (Auto) Lymph % (Auto) [place] % (Auto) Eos % (Auto) Baso % (Auto) Nucleat RBC Rel Count Absolute Neuts (auto) Absolute Lymphs (auto) Absolute Monos (auto) Absolute Eos (auto) Absolute Basos (auto) Absolute Nucleated RBC Immature Gran % Immature Gran # Puncture Site VENOUS Patient Temperature 37.0 DEGREES DEGREES VBG pH 7.20 L (7.31-7.42) VBG HCO3 11 mEQ/L L mEQ/L (22-26) VBG Total CO2 12 mEq/L L mEq/L (21-27) VBG O2 Saturation 76 % H % (65-75) VBG Base Excess -15.8 mEq/L L mEq/L (-2.5-2.5) Mixed VBG pCO2 29 mmHg L mmHg (40-44) Mixed VBG pO2 50 mmHG H mmHG (35-40) POC Sodium 134 mEq/L L mEq/L (135-145) Sodium 137 mEq/L mEq/L (135-145) POC Potassium 4.8 mEq/L mEq/L (3.3-5.0) Potassium 5.6 mEq/L H mEq/L (3.3-5.0) POC Chloride 104 mEq/L mEq/L (97-110) Chloride 100 mEq/L mEq/L (97-110) Carbon Dioxide 10 mEq/l L mEq/l (22-31) Anion Gap 27 mEq/L H mEq/L (6-14) POC BUN 21 mg/dL mg/dL (7-23) BUN 20 mg/dL mg/dL (7-23) Creatinine 0.8 mg/dL mg/dL (0.6-1.0) POC Creatinine 0.7 mg/dL mg/dL (0.6-1.0) Estimated GFR > 60 Glucose 543 mg/dL H* mg/dL (70-100) POC Glucose 538 mg/dL H* mg/dL (70-100) Calcium 10.6 mg/dL H mg/dL (8.5-10.4) Phosphorus 4.9 mg/dL H mg/dL (2.5-4.5) Magnesium 2.0 mg/dL mg/dL (1.6-2.3) Total Bilirubin 1.4 mg/dL mg/dL (0.1-1.4) AST 44 IU/L IU/L (14-46) ALT 32 IU/L IU/L (9-52) Alkaline Phosphatase 114 IU/L IU/L (38-126) Total Protein 8.5 g/dL H g/dL (6.3-8.2) Albumin 5.2 g/dL H g/dL (3.5-5.0) Beta-Hydroxybutyrate 6.89 mmol/L H mmol/L (0.02-0.27) 09/18/18 01:25 WBC 13.04 10^3/uL H 10^3/uL (3.80-9.50) RBC 4.97 10^6/uL 10^6/uL (4.18-5.33) Hgb 15.3 g/dL g/dL (12.6-16.3) POC Hgb Hct 44.7 % % (38.0-47.0) POC Hct MCV 89.9 fL fL (81.5-99.8) MCH 30.8 pg pg (27.9-34.1) MCHC 34.2 g/dL g/dL (32.4-36.7) RDW 12.4 % % (11.5-15.2) Plt Count 315 10^3/uL 10^3/uL (150-400) MPV 10.3 fL fL (8.7-11.7) Neut % (Auto) 86.6 % H % (39.3-74.2) Lymph % (Auto) 10.6 % L % (15.0-45.0) Ector % (Auto) 2.1 % L % (4.5-13.0) Eos % (Auto) 0.1 % L % (0.6-7.6) Baso % (Auto) 0.2 % L % (0.3-1.7) Nucleat RBC Rel Count 0.0 % % (0.0-0.2) Absolute Neuts (auto) 11.30 10^3/uL H 10^3/uL (1.70-6.50) Absolute Lymphs (auto) 1.38 10^3/uL 10^3/uL (1.00-3.00) Absolute Monos (auto) 0.28 10^3/uL L 10^3/uL (0.30-0.80) Absolute Eos (auto) 0.01 10^3/uL L 10^3/uL (0.03-0.40) Absolute Basos (auto) 0.02 10^3/uL 10^3/uL (0.02-0.10) Absolute Nucleated RBC 0.00 10^3/uL 10^3/uL (0-0.01) Immature Gran % 0.4 % % (0.0-1.1) Immature Gran # 0.05 10^3/uL 10^3/uL (0.00-0.10) Puncture Site Patient Temperature VBG pH VBG HCO3 VBG Total CO2 VBG O2 Saturation VBG Base Excess Mixed VBG pCO2 Mixed VBG pO2 POC Sodium Sodium POC Potassium Potassium POC Chloride Chloride Carbon Dioxide Anion Gap POC BUN BUN Creatinine POC Creatinine Estimated GFR Glucose POC Glucose Calcium Phosphorus Magnesium Total Bilirubin AST ALT Alkaline Phosphatase Total Protein Albumin Beta-Hydroxybutyrate Medications Given: Dextrose (D10w) 1,000 mls @ 0 mls/hr IV AD AMAYA; Per Protocol PRN Reason: Protocol Stop: 03/17/19 04:29 Last Admin: 09/18/18 04:22 Dose: 1,000 mls Sodium Chloride (Ns) 1,000 mls @ 250 mls/hr IV CONT AMAYA Stop: 03/17/19 05:29 Last Admin: 09/18/18 06:11 Dose: 1,000 mls Discontinued Medications Sodium Chloride (Ns) 1,000 mls @ 0 mls/hr IV EDNOW ONE; Wide Open PRN Reason: Protocol Stop: 09/18/18 01:15 Last Admin: 09/18/18 01:31 Dose: 1,000 mls Sodium Chloride (Ns) 1,000 mls @ 1,000 mls/hr IV EDNOW ONE PRN Reason: Protocol Stop: 09/18/18 03:32 Last Admin: 09/18/18 02:40 Dose: 1,000 mls Dextrose (D10w) 1,000 mls @ 0 mls/hr IV CONT ONE; Per Protocol PRN Reason: Protocol Stop: 09/18/18 01:37 Last Admin: 09/18/18 03:25 Dose: Not Given Insulin Human Regular 100 unit / Miscellaneous Medication 1 ea/ Sodium Chloride 101 mls @ 0 mls/hr IV EDNOW ONE; Per Protocol PRN Reason: Protocol Stop: 09/18/18 01:37 Last Admin: 09/18/18 01:56 Dose: 101 mls Potassium Chloride (Potassium Cl 10 Meq (Premix)) 100 mls @ 100 mls/hr IV Q1H AMAYA Stop: 09/18/18 03:44 Last Admin: 09/18/18 04:40 Dose: Not Given Sodium Chloride (Ns) 500 mls @ 500 mls/hr IV ONCE ONE Stop: 09/18/18 04:29 Last Admin: 09/18/18 04:25 Dose: 500 mls Sodium Chloride (Ns) 500 mls @ 500 mls/hr IV ONCE ONE Stop: 09/18/18 05:29 Last Admin: 09/18/18 04:47 Dose: 500 mls Ondansetron HCl (Zofran) 4 mg IVP EDNOW ONE Stop: 09/18/18 01:30 Last Admin: 09/18/18 01:31 Dose: 4 mg Point of Care Test Results: Chemistry 09/18/18 01:32 POC Sodium 134 mEq/L L mEq/L (135-145) POC Potassium 4.8 mEq/L mEq/L (3.3-5.0) POC Chloride 104 mEq/L mEq/L (97-110) POC BUN 21 mg/dL mg/dL (7-23) POC Creatinine 0.7 mg/dL mg/dL (0.6-1.0) POC Glucose 538 mg/dL H* mg/dL (70-100) ISTAT H&H 09/18/18 01:32 POC Hgb 16.3 gm/dL gm/dL (12.6-16.3) POC Hct 48 % H % (38-47) Departure - Departure Disposition: [facility] Acute Clinical Impression: DKA (diabetic ketoacidoses) Qualifiers: Diabetes mellitus type: type 1 Diabetes mellitus complication detail: without coma Qualified Code(s): E10.10 - Type 1 diabetes mellitus with ketoacidosis without coma Condition: Fair
[2018-09-18] MEDS ORDERED: POTASSIUM Cl (KCl) 100 ML IV SCH ×2 (01:45→02:00)
[2018-09-18] MEDS ORDERED: ONDANSETRON 4 MG/2 ML VIAL IVP PRN (02:17)
[2018-09-18] MEDS ORDERED: ONDANSETRON DISINTEGRATING 4 MG TAB PO PRN (02:17)
--- NOTE | 2018-09-18 02:38 | PDGENHP ---
History and Physical - Chief Complaint Nausea - History of Present Illness 23 yo F w/ hx of T1DM presents with nausea and vomiting. Patient has been experiencing fatigue today followed by nausea and vomiting. She checked her BG and noted it to be >500. Despite several insulin boluses her BG remained elevated and her symptoms unchanged so she came to the ED. I get the impression she has been distracted from her diabetes management as of late. She tells me she has been under a lot of stress lately and forgot to refill her pump at one point. Additionally, she stopped wearing her continuous glucose monitor regularly since she did not like that it was visible on a regular basis. As a result, she has not been checking her BG as regularly as she should. She denies all infectious ROS at this time and her symptoms are improved after fluids and insulin. Records reviewed in EMR; case discussed with ED physician Dr. Castañeda. History Information - Allergies/Home Medication List Allergies/Adverse Reactions: No Known Allergies Allergy (Verified 09/18/18 01:10) Home Medications: FLUoxetine [Prozac 20 MG (*)] 20 mg PO DAILY 09/24/16 [Last Taken 10/15/17] Insulin Pump, Patient Own 1 ea MISC AD 09/24/16 [Last Taken Unknown] Oxybutynin Chloride [Ditropan Xl] 30 mg PO DAILY 10/16/17 [Last Taken 10/15/17] I have personally reviewed and updated: family history, medical history - Past Medical History diabetes type 1 - Surgical History Reports: no pertinent surgical hx - Family History Positive for: diabetes type I (Aunt) - Social History Smoking Status: Never smoked Review of Systems Review of Systems: ROS: 10pt was reviewed & negative except for what was stated in HPI & below Physical Exam Physical Exam: Temp Pulse Resp BP Pulse Ox 36.5 C 123 H 18 120/76 97 09/18/18 01:08 09/18/18 02:00 09/18/18 02:00 09/18/18 02:00 09/18/18 02:00 Constitutional: no apparent distress, not in pain Eyes: PERRL, EOMI Ears, Nose, Mouth, Throat: moist mucous membranes, no oral mucosal ulcers Cardiovascular: no murmur, rub, or gallop, tachycardia Respiratory: no respiratory distress, clear to auscultation Gastrointestinal: normoactive bowel sounds, soft, non-tender abdomen Skin: warm, normal color Musculoskeletal: full muscle strength, no muscle tenderness Neurologic: AAOx3, CN II-XII Intact Psychiatric: interacting appropriately, not anxious Lab Data & Imaging Review 09/18/18 01:25 09/18/18 01:25 WBC 13.04 10^3/uL (3.80-9.50) H 09/18/18 01:25 RBC 4.97 10^6/uL (4.18-5.33) 09/18/18 01:25 Hgb 15.3 g/dL (12.6-16.3) 09/18/18 01:25 POC Hgb 16.3 gm/dL (12.6-16.3) 09/18/18 01:32 Hct 44.7 % (38.0-47.0) 09/18/18 01:25 POC Hct 48 % (38-47) H 09/18/18 01:32 MCV 89.9 fL (81.5-99.8) 09/18/18 01:25 MCH 30.8 pg (27.9-34.1) 09/18/18 01:25 MCHC 34.2 g/dL (32.4-36.7) 09/18/18 01:25 RDW 12.4 % (11.5-15.2) 09/18/18 01:25 Plt Count 315 10^3/uL (150-400) 09/18/18 01:25 MPV 10.3 fL (8.7-11.7) 09/18/18 01:25 Neut % (Auto) 86.6 % (39.3-74.2) H 09/18/18 01:25 Lymph % (Auto) 10.6 % (15.0-45.0) L 09/18/18 01:25 [place] % (Auto) 2.1 % (4.5-13.0) L 09/18/18 01:25 Eos % (Auto) 0.1 % (0.6-7.6) L 09/18/18 01:25 Baso % (Auto) 0.2 % (0.3-1.7) L 09/18/18 01:25 Nucleat RBC Rel Count 0.0 % (0.0-0.2) 09/18/18 01:25 Absolute Neuts (auto) 11.30 10^3/uL (1.70-6.50) H 09/18/18 01:25 Absolute Lymphs (auto) 1.38 10^3/uL (1.00-3.00) 09/18/18 01:25 Absolute Monos (auto) 0.28 10^3/uL (0.30-0.80) L 09/18/18 01:25 Absolute Eos (auto) 0.01 10^3/uL (0.03-0.40) L 09/18/18 01:25 Absolute Basos (auto) 0.02 10^3/uL (0.02-0.10) 09/18/18 01:25 Absolute Nucleated RBC 0.00 10^3/uL (0-0.01) 09/18/18 01:25 Immature Gran % 0.4 % (0.0-1.1) 09/18/18 01:25 Immature Gran # 0.05 10^3/uL (0.00-0.10) 09/18/18 01:25 Puncture Site VENOUS 09/18/18 01:25 Patient Temperature 37.0 DEGREES 09/18/18 01:25 VBG pH 7.20 (7.31-7.42) L 09/18/18 01:25 VBG HCO3 11 mEQ/L (22-26) L 09/18/18 01:25 VBG Total CO2 12 mEq/L (21-27) L 09/18/18 01:25 VBG O2 Saturation 76 % (65-75) H 09/18/18 01:25 VBG Base Excess -15.8 mEq/L (-2.5-2.5) L 09/18/18 01:25 Mixed VBG pCO2 29 mmHg (40-44) L 09/18/18 01:25 Mixed VBG pO2 50 mmHG (35-40) H 09/18/18 01:25 POC Sodium 134 mEq/L (135-145) L 09/18/18 01:32 Sodium 137 mEq/L (135-145) 09/18/18 01:25 POC Potassium 4.8 mEq/L (3.3-5.0) 09/18/18 01:32 Potassium 5.6 mEq/L (3.3-5.0) H 09/18/18 01:25 POC Chloride 104 mEq/L (97-110) 09/18/18 01:32 Chloride 100 mEq/L (97-110) 09/18/18 01:25 Carbon Dioxide 10 mEq/l (22-31) L 09/18/18 01:25 Anion Gap 27 mEq/L (6-14) H 09/18/18 01:25 POC BUN 21 mg/dL (7-23) 09/18/18 01:32 BUN 20 mg/dL (7-23) 09/18/18 01:25 Creatinine 0.8 mg/dL (0.6-1.0) 09/18/18 01:25 POC Creatinine 0.7 mg/dL (0.6-1.0) 09/18/18 01:32 Estimated GFR > 60 09/18/18 01:25 Glucose 543 mg/dL (70-100) H* 09/18/18 01:25 POC Glucose 538 mg/dL (70-100) H* 09/18/18 01:32 Calcium 10.6 mg/dL (8.5-10.4) H 09/18/18 01:25 Phosphorus 4.9 mg/dL (2.5-4.5) H 09/18/18 01:25 Magnesium 2.0 mg/dL (1.6-2.3) 09/18/18 01:25 Total Bilirubin 1.4 mg/dL (0.1-1.4) 09/18/18 01:25 AST 44 IU/L (14-46) 09/18/18 01:25 ALT 32 IU/L (9-52) 09/18/18 01:25 Alkaline Phosphatase 114 IU/L (38-126) 09/18/18 01:25 Total Protein 8.5 g/dL (6.3-8.2) H 09/18/18 01:25 Albumin 5.2 g/dL (3.5-5.0) H 09/18/18 01:25 Assessment & Plan Assessment: 23 yo F w/ T1DM presents with DKA. Plan: 1. T1DM c/b DKA, acute - I suspect this is related to insulin underdosing as patient admits to poor diabetes management as of late. She has been under a lot of stress and at one point forgot to refill her pump. In addition, she has stopped wearing her continuous glucose monitor leading to much less frequent BG checks. She denies all infectious ROS. - Admit to ICU for DKA protocol - Globe Tester improved DM management and use of CGM 2. Sinus tachycardia - Related to dehydration from above, continue IVF. 3. Leukocytosis - Mild, likely reactive from #1. She denies all infectious ROS. Diet - NPO while on insulin gtt Code - Full Ppx - Low risk, ambulate TID Dispo - Admit under observations status
[2018-09-18] MEDS ORDERED: D50W 25 GM/50 ML VIAL IVP PRN ×2 (03:00→04:30)
[2018-09-18] MEDS ORDERED: PROTOCOL POTASSIUM 1 DOSE MISC PRN ×2 (03:17)
--- NOTE | 2018-09-18 03:26 | CPEKG ---
Test Reason : OPEN Blood Pressure : / mmHG Vent. Rate : 126 BPM Atrial Rate : 126 BPM P-R Int : 135 ms QRS Dur : 082 ms QT Int : 308 ms P-R-T Axes : 115 078 020 degrees QTc Int : 446 ms Sinus tachycardia Confirmed by Rosalba Castañeda ([id number]) on 09/18/2018 3:26:03 AM Referred By: Confirmed By:Rosalba Castañeda
[2018-09-18] MEDS ORDERED: NS 500 ML IV ONE ×2 (03:30→04:30)
[2018-09-18] MEDS ORDERED: D10W 1,000 ML IV SCH (04:30)
[2018-09-18] MEDS ORDERED: INSULIN REGULAR HUMAN 100 UNIT in NS 100 ML IV SCH (04:30)
[2018-09-18 05:13] LABS: PLATELET COUNT 274 10^3/uL (150-400)
[2018-09-18] MEDS: NS 1,000 ML IV SCH ×2 (06:11→09:34)
--- NOTE | 2018-09-18 09:11 | ASMTCMCOM ---
CM Note CM Note Notes: 23yo female admitted for DKA. She has a Hx of DM-1, an insulin pump and glucose monitor. Patient reports being under stress and not managing her blood sugars as she should. CM to check on stressors. May not have discharge needs. Date Signed: 09/18/2018 09:10 AM Electronically Signed By:Mikki Peña LCSW
[2018-09-18] MEDS: ACETAMINOPHEN 325 MG TAB PO PRN ×2 (11:39→17:07)
[2018-09-18] MEDS ORDERED: INSULIN PUMP, PATIENT OWN 1 EA MISC SCH ×2 (12:00→18:15)
[2018-09-18] MEDS ORDERED: NS 1,000 ML IV SCH (17:30)
[2018-09-18] MEDS ORDERED: PROMETHAZINE HCL 25 MG TAB PO PRN (17:53)
[2018-09-18] MEDS ORDERED: NON-FORMULARY NEW DRUG (Insulin Pump, Patient Own 1 EA) MISC SCH (18:00)
--- NOTE | 2018-09-18 18:02 | HOSPPROG ---
Hospitalist Progress Note Assessment/Plan: Assessment: 23-year-old male presents with acute DKA the setting type 1 diabetes Plan: 1. DKA. Acute, new problem this provider, further workup indicated. Evidenced by hyperglycemia plus positive beta hydroxybutyrate level plus anion gap acidosis, most likely precipitated by inadequate outpatient control with her home insulin pump as well as increased life stressors and resultant hyperglycemia exacerbation -serum bicarbonate level 16 this morning with closed anion gap, fasting blood glucose level 220 -repeat serum chemistry at 3:00 p.m. To evaluate anion gap and gauge whether his reopening -discussed with RN, discontinue insulin drip and reconnected patient's pump this morning -net positive 3.5 L overnight, hold additional IV fluids and gauge oral intake -instructed patient to continue her basal rate on pump, bolusing as she would normally do at home based on glucometer checks as well as carb counting -discussed with Dr. Burton, we agreed to adjust patient's status from ICU to lower level of care as appropriate 2. Systemic inflammatory response syndrome. Secondary to DKA, EKG demonstrating sinus tachycardia, personally interpreted Diet. Advance to diabetic Prophylaxis. Low risk patient, SCDs Code. Full Disposition. To be determined based on anion gap, glucose levels, pump management this afternoon. Subjective: patient feeling well this AM, wanted to discharge, hungry Objective: Vital Signs Temp Pulse Resp BP Pulse Ox 37.1 C 113 H 16 121/77 H 99 09/18/18 16:00 09/18/18 16:00 09/18/18 16:00 09/18/18 16:00 09/18/18 12:00 Laboratory Results 09/18/18 05:08 09/18/18 14:50 09/17/18 09/18/18 09/19/18 05:59 05:59 05:59 Intake Total 4502 1842.1 Output Total 900 Balance 3602 1842.1 - Physical Exam Constitutional: no apparent distress, appears nourished, not in pain, No uncomfortable Cardiovascular: regular rate and rhythym, no murmur, rub, or gallop, No edema Respiratory: no respiratory distress, no rales or rhonchi, clear to auscultation Gastrointestinal: normoactive bowel sounds, soft, non-tender abdomen, No distension Neurologic: AAOx3 Psychiatric: interacting appropriately, not anxious, not encephalopathic, thought process linear ICD10 Worksheet Patient Problems: Problems Problem Status Onset DKA (diabetic ketoacidoses) Acute Nausea & vomiting Acute
[2018-09-18] MEDS: PROMETHAZINE HCL 25 MG/ML INJ IVP PRN ×2 (18:08→19:05)
[2018-09-18] MEDS ORDERED: INSULIN REGULAR HUMAN 100 UNIT/ML UNIT SC SCH (20:00)
[2018-09-19 04:24] LABS: PLATELET COUNT 247 10^3/uL (150-400)
--- NOTE | 2018-09-19 07:21 | PDMN ---
Medical Necessity Medical necessity: [facility] [place] Diabetes: DKA, pt with elevated glucose, with persistent acidosis , symptoms and hyperglycemia req ongoing 4 hr. labs IVF, glucose tx, further monitoring
[2018-09-19] MEDS ORDERED: PNEUMOCOCCAL 0.5ML VACCINE VIAL IM ONE ×2 (08:35→14:30)
[2018-09-19] MEDS ORDERED: 1/2 NS 1,000 ML IV SCH (08:45)
[2018-09-19] MEDS ORDERED: OXYBUTYNIN 5 MG EXT REL TAB PO SCH (09:00)
[2018-09-19] MEDS ORDERED: FLUoxetine 20 MG CAP PO SCH (09:00)
[2018-09-19 12:11] VITALS: BP 113/73
--- NOTE | 2018-09-19 15:23 | ASMTCMCOM ---
CM Note CM Note Notes: Patient wanting to leave the hospital. Didn't want to talk about her stressors. [place] that her aunt and uncle live in the area. She revealed that a friend had committed suicide. She didn't want to talk about it. I asked if she would like some Bereavement resources-she would, so those were given to her. Date Signed: 09/19/2018 03:22 PM Electronically Signed By:Mikki Peña LCSW
--- NOTE | 2018-09-19 15:54 | PDDCSUM ---
Discharge Summary Discharge Summary: DISCHARGE SUMMARY FOLLOW-UP ITEMS: Outpatient glucometer management through endocrinology DATE OF ADMISSION: 09/18/2018 DATE OF DISCHARGE: 09/19/2018 DISCHARGE DIAGNOSES: 1. Acute DKA 2. Acute metabolic acidosis 3. Hyperglycemia from diabetes mellitus type 1 CONSULTATIONS: Curbside with Endocrinology PROCEDURES / IMAGING: Normal EKG CHIEF COMPLAINT: Acute nausea vomiting fatigue SUBJECTIVE: Patient is feeling well at time discharge, she is tolerating an oral diet effectively PHYSICAL EXAM ON DISCHARGE: Systolic blood pressure is 100-130, heart rate 80-100, satting on room air, afebrile overnight, alert awake oriented x3, no apparent distress, pain level 0/ 10 LABS ON DISCHARGE: Hemoglobin A1c 9.4%, creatinine 0.6, serum bicarbonate 20, anion gap 9, potassium 4, blood glucose 180 HOSPITAL COURSE BY PROBLEM: The patient presented with acute DKA as evidenced by severe hyperglycemia, pH of 7.18, severe metabolic acidosis, positive beta hydroxybutyrate level, most likely secondary to inadequate glycemic control as an outpatient with her home pump, failing to monitor her glucose levels regularly and provide adequate bolusing. The patient was symptomatic with nausea vomiting and fatigue, and she received high volume IV fluids as well as DKA protocol with insulin drip. She was weaned off of her insulin drip on 09/18, and transitioned onto her home pump, which initially resulted in inadequate control of hyperglycemia and reopening of her anion gap, with a subsequent serum bicarbonate level of 7, requiring more aggressive IV fluids, more aggressive self bolusing on her insulin pump, with eventual anion gap, serum bicarbonate, hyperglycemic response by 09/19 a.m. She also required significant antiemetic dosing with IV Phenergan and Zofran for symptomatic management. 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 Delgado recommended adjusting the patient's insulin to carbohydrate ratio from 1:8 to 1:5, for the 6:00 a.m. and 12 noon intervals. The patient did not feel comfortable making this degree of adjustment, but she did feel comfortable adjusting her insulin to carbohydrate ratio to 1:7, and her subsequent glucose reading was 180 prior to discharge. The patient was tolerating oral intake and feels confident following up with Dr. Delgado in the near future. DISCHARGE MEDICATIONS: Please see official discharge medication reconciliation sheet in chart , home insulin pump, as needed Zofran, continue other home medications. DISCHARGE INSTRUCTIONS: Please call Dr. Delgado's office today and schedule outpatient follow-up appointment. TIME SPENT: Greater than 30 minutes were spent on direct patient care, as well as discharge planning and preparation.
--- NOTE | 2018-09-19 16:12 | ASDISCHSUM ---
Discharge Information Plan Status:Home with No Needs Medically Cleared to Leave:09/19/2018 Discharge Date:09/19/2018 CM D/C Disposition:Home, Routine, Self-Care ADT D/C Disposition:Home, Routine, Self-Care Projected Discharge Date:09/19/2018 05:00 PM Transportation at D/C:Friend Discharge Delay Reason: Follow-Up Date:09/19/2018 05:00 PM Discharge Slot:2 - 12:01 pm - 18:00 pm Final Diagnosis:DKA, DM-1 Placement Information Patient Contact Information Contact Name:SILKE Relationship:Uncle Address: Work Phone: City: [facility] Phone: State/Zip Code: Email: Financial Information Financial Class:BC Primary Plan Desc: OUT OF STATE [facility] Primary Plan Number:[id number] Secondary Plan Desc: Secondary Plan Number: Assessment Information LACE LACE Length of stay for Answers: Less than 1 day current admission Acuity / Level of Answers: Yes Care: Did the patient have an inpatient admission? Comorbidities - select Answers: Diabetes (uncontrolled or all that apply controlled) # of Emergency department Answers: 1-2 visits in the last 6 months Score: 5 Date Signed: 09/19/2018 04:09 PM Electronically Signed By:Mikki Peña LCSW [facility] Progress Note CM Note CM Note Notes: 23yo female admitted for DKA. She has a Hx of DM-1, an insulin pump and glucose monitor. Patient reports being under stress and not managing her blood sugars as she should. CM to check on stressors. May not have discharge needs. Date Signed: 09/18/2018 09:10 AM Electronically Signed By:Mikki Peña LCSW [facility] CM Progress Note CM Note CM Note Notes: Patient wanting to leave the hospital. Didn't want to talk about her stressors. [place] that her aunt and uncle live in the area. She revealed that a friend had committed suicide. She didn't want to talk about it. I asked if she would like some Bereavement resources-she would, so those were given to her. Date Signed: 09/19/2018 03:22 PM Electronically Signed By:Mikki Peña LCSW Case Management Discharge Plan Note Case Management Discharge Discharge Order Complete? Answers: Yes Patient to Obtain Answers: Independently Medications Transportation Arranged Answers: Family/Friends Transport will Pick (Date 09/19/2018 05:00 PM & Time) Discharge Comments Notes: Patient has been discharged. Given bereavement resources. Date Signed: 09/19/2018 04:11 PM Electronically Signed By:Mikki Peña LCSW Intervention Information
== END 2018-09-19 16:15 | disposition home or self-care (01) | DRG 639 ==
LOC: INTOOBSV 02:12 → F2N 02:47 → OBSVTOIN 17:57
PROVIDERS: ADMIT Student in an Organized Health Care Education/Training Program; ATTEND Student in an Organized Health Care Education/Training Program
DX: E10.10 Type 1 diabetes mellitus with ketoacidosis without coma (principal); E10.65 Type 1 diabetes mellitus with hyperglycemia; E86.0 Dehydration; R00.0 Tachycardia, unspecified; Z96.41 Presence of insulin pump (external) (internal); Z23 Encounter for immunization
CPT/HCPCS: 82435-PO; 82565-PO; 82947-PO; 84132-PO; 84295-PO; 84520-PO; 85014-PO; G0009; J1815; J2405; J2550

== ENCOUNTER 2019-02-12 12:50 | Emergency (ER) | payer BC ==
[2019-02-12 14:25] VITALS: BP 109/79
--- NOTE | 2019-02-12 14:43 | EDPHY ---
General Time Seen by Provider: 02/12/19 13:05 Narrative: CLINICAL IMPRESSION: Left thigh abscess with cellulitis ASSESSMENT/PLAN: Patient is a 24-year-old female who is an insulin-dependent diabetic who presents to the emergency department for wound check. Patient is afebrile and not toxic appearing, no acute distress. She was noted to be mildly tachycardic on arrival, I suspect this to be secondary to pain. She has had no constitutional symptoms to suggest systemic infection. Blood sugars have been running in her normal range of the low 200s; I do not suspect DKA. Physical exam reveals 6 cm erythematous and indurated area on the left mid anterior thigh with a central area of fluctuance. Her external genital exam revealed normal vaginal mucosa without evidence of irritation, lesions or yeast infection. History and physical examination is consistent with left thigh cellulitis and abscess. The abscess was incised and drained, approximately 15 cc of thick purulent drainage was expressed, please see procedure note. There was no evidence of necrotizing skin infection or deep space infection. She will continue her Bactrim and I would like her to add Keflex to her daily antibiotic regimen. She is well established with his PCP and will call to schedule an appointment for repeat exam tomorrow. Return precautions discussed- she will return for fever, redness, swelling, warmth, or streaking around the wound, new lesions, extremity swelling, pain out of proportion or for any other new, worsening or worrisome symptoms. Patient verbalizes understanding and she is in agreement with plan. DIFFERENTIAL DX: Differential diagnosis includes but not limited to sepsis, cellulitis, abscess, deep space infection, necrotizing skin infection ED PROCEDURES: Procedure: Abscess drainage. The patient's abscess was located on the left anterior thigh. I obtained verbal consent from the patient to drain the abscess who was informed about the possibility of bleeding and pain. The abscess was incised with an 11 blade and a moderate amount (approximately 15 cc) of purulent drainage was expressed. I copiously irrigated the wound, loculations were broken up with no additional drainage; a small wick was placed. The patient tolerated the procedure well. The procedure was performed by myself. CHIEF COMPLAINT: Wound check, left thigh pain HPI: Patient is a 24-year-old female who is an insulin-dependent diabetic who presents to the emergency department for wound check. Patient reports last Tuesday she noticed an area of redness around her insulin pump site on her left anterior thigh, she was seen by her PCP and started on Keflex. She removed her insulin pump 10 relocated to her abdomen at time. Patient reports increased redness the following day, she discussed this with her PCP in a transitioned her to Bactrim. She experienced a strange sensation in her mouth and was subsequently taken off Bactrim on and started on doxycycline. She reports worsening of redness, was changed back to Bactrim on Tuesday night and has been on Bactrim since that time. She reports that the area of redness is actually improving but there is still an area that is very firm and tender to palpation. She denies any fevers, chills, nausea, vomiting or change in appetite. She denies any chest pain, shortness of breath or abdominal pain. 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 No history of abscesses or MRSA infections in the past. Patient also endorses some vaginal discomfort since she started on antibiotics, no history of yeast infections. She denies any redness, lesions or drainage. Denies any pelvic pain. PMH: Insulin-dependent diabetic Family History: Denies Social History: Denies cigarette smoking or illicit drug use REVIEW OF SYSTEMS: All other systems negative Constitutional: No fever, no chills, appetite change. Eyes: No discharge, vision change ENT: No sore throat, congestion, ear pain. Cardiovascular: No chest pain, no palpitations. Respiratory: No cough, no shortness of breath. Gastrointestinal: No abdominal pain, no vomiting, diarrhea. Genitourinary: No hematuria, dysuria, flank pain, pelvic pain Musculoskeletal: No back pain, joint swelling, joint pain, myalgias. Skin: Wound concern left thigh. No rashes. Neurological: No headache, dizziness, weakness. PHYSICAL EXAM: General Appearance: Well-appearing, no acute distress. HENT: Normocephalic, atraumatic. Bilateral external ears are normal. Bilateral tympanic membranes are normal with pearly richardson reflex. Nares are clear, mucosa is pink. Oropharynx is clear, mucosa is moist, uvula is midline. There is no tonsillar enlargement or exudate. The dentition is normal. Eyes: PERRLA, EOMI intact. Conjunctiva pink, no pallor or injection. Neck: Supple, nontender, no lymphadenopathy, no midline pain, FROM, no meningismus. Respiratory: There are no retractions, lungs are clear to auscultation. Cardiac: Regular rate and rhythm, no murmurs or gallops. Gastrointestinal: Abdomen is soft, nontender, bowel sounds normal, no masses/ hernia, no rigidity, guarding or focal peritoneal findings. 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 Neurological: Alert and oriented x 3, CN 2-12 grossly intact, normal gait no ataxia, DTR's intact, normal sensation and strength Skin: Warm, dry. Left anterior middle thigh with approximately 6 cm of induration and erythema with centralized fluctuance. No open wounds. Musculoskeletal: Extremities are symmetrical, full range of motion, no tenderness, deformity, swelling, or erythema. Psychiatric: Patient is oriented X 3, there is no agitation. MEDICAL DECISION MAKING: Patient was seen independently. Secondary supervising physician at time of evaluation was Dr. Mensah, he did not evaluate this patient however we discussed case and plan of care. Diagnosis: Left thigh cellulitis and abscess. New, requires workup Summary: See Assessment and Plan for summary of ED visit Clinical lab tests: Not applicable. Independent visualization of images, tracing, or specimens: Not applicable. Decision to obtain medical records or history from someone other than the patient: No Review / Summarize previous medical records: Yes Discussed patient with another provider: Yes, Dr. Mensah Patient Progress: Stable, discharged. - History Smoking Status: Never smoked - Objective Vital Signs: Initial Vital Signs Temperature (C) 37 C 02/12/19 13:01 Heart Rate 109 H 02/12/19 13:01 Respiratory Rate 18 02/12/19 13:01 Blood Pressure 110/75 02/12/19 13:01 O2 Sat (%) 99 02/12/19 13:01 O2 Delivery Mode Room Air Allergies/Adverse Reactions: No Known Allergies Allergy (Verified 02/12/19 12:59) Home Medications: Medication Instructions Recorded FLUoxetine [Prozac 20 MG (*)] 20 mg PO DAILY 09/24/16 Insulin Pump, Patient Own 1 ea MISC AD 09/24/16 Oxybutynin Chloride [Ditropan Xl] 30 mg PO DAILY 10/16/17 Bactrim DS 02/12/19 Doxycycline Hyclate 02/12/19 Keflex 02/12/19 Nexplanon 02/12/19 Departure - Departure Disposition: Home, Routine, Self-Care Clinical Impression: Cellulitis and abscess of left leg Condition: Good Instructions: Abscess (ED) Additional Instructions: DISCHARGE INSTRUCTIONS FROM YOUR DOCTOR Thank you for visiting our emergency department today. Please keep in mind that discharge from the emergency department does not mean that there is nothing wrong - it simply means that we have not identified an emergency condition that requires further evaluation or treatment in the hospital. Please follow-up with your primary care provider tomorrow for a wound check. Continue her Bactrim as prescribed, I would like you to add Keflex which should be taken 500 mg every 6 hr. Rest, drink plenty of fluids, healthy foods, all to to help your immune system fight the infection and to help the healing process. Please continue taking her blood sugars. Keep the wound area clean. Wear loose clothing. There is a wick in place, please remove a small portion daily and cover with a sterile dressing. Elevate the affected limb as much as possible above the level of the heart. Keflex (antibiotic) as prescribed four times daily, for the next 7 days. Bactrim DS (antibiotic) twice daily as prescribed for the next 7 days. Consume yogurt and take over the counter probiotics to help prevent diarrhea from the antibiotics. For pain control: You may take Tylenol, I recommend 500-1000 mg every 6-8 hours as needed. Take with food and a full glass of water. Stop taking if this is upsetting her stomach. Do not exceed 4000 mg in a 24 hr period. You may also take ibuprofen, recommend 400 mg every 6 hr. Take with food and a full glass of water. Stop taking if this upsets her stomach. Do not exceed 2400 mg in a 24 hr period. Continue your regular medications as prescribed. Schedule a follow-up appointment with your primary care physician in the next 24 -48 hours for a wound check to ensure you are healing and don't require further antibiotics or intervention. Return for persistent or recurrent fever, vomiting, inability to tolerate the antibiotic(s) by mouth, redness, swelling, warmth, or streaking around the wound , increased redness outside the marked lines , new lesions, extremity swelling, pain out of proportion to what you would expect for this infection, chest or abdominal pain, vomiting, throat tightness, facial swelling, difficulty breathing or swallowing, sores in the mouth or the eyes, or for any other new, worsening or worrisome symptoms. People present with illnesses and injuries in different ways, and it is always possible that we have missed something. You may always return for re-evaluation if symptoms worsen or if they are not improving or if you develop new/different symptoms. Again, thank you for choosing our emergency department. We hope that you feel better. Referrals: JESÚS DELATORRE NP [Primary Care Provider] - 1 day without fail (Please be seen by your primary care provider tomorrow for a wound check.)
== END 2019-02-12 14:51 | disposition home or self-care (01) ==
PROC: 0H9JXZZ Drainage of Left Upper Leg Skin, External Approach (ICD-10-PCS; principal; 2019-02-12)
DX: L03.116 Cellulitis of left lower limb (principal); L02.416 Cutaneous abscess of left lower limb